=== PATIENT | male | born 2005 | race Caucasian/White ===

== ENCOUNTER 2025-02-14 11:56 | Emergency (ER) | payer OTHER, SELFPAY ==
--- OUTSIDE RECORDS SUMMARY | 2025-02-14 12:01 | XMS_ITS | Clinical Summary ---
Author Organization [facility] Address [address] [place] [address] Care Team Providers Care Sub Master Name Role Phone Dalila Beasley MD Primary Care Provider [phone] Source Comments [facility],non-owned Affiliates and Associated Physician Practices is amultiple site organization consisting of ambulatory clinics and hospital sitesin [place], [place], [place] and [place]. This disclosure is being madepursuant to the Care Everywhere program and may not contain all information available regarding this patient. Last updated 17.[facility] Allergies No known active allergies Medications * Be aware that medications may not be up to date on this document. Alwaysverify current medications with the patient. 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 Gender Identity Not on file Sexual Orientation Not on file Last Filed Vital Signs Vital Sign Reading Time Taken Comments Blood Pressure 98/60 10/06/2014 2:05 PM CDT Pulse 80 10/06/2014 6:07 PM CDT Temperature 37 C (98.6 F) 10/06/2014 4:15 PM CDT Respiratory Rate 20 10/06/2014 6:07 PM CDT Oxygen Saturation 98% 10/06/2014 2:05 PM CDT Inhaled Oxygen Concentration - - Weight 36.2 kg (79 lb 12.9 oz) 10/06/2014 2:05 P M CDT Height - - Body Mass Index - - Plan of Treatment Health Maintenance Due Date Last Done Comments HIV SCREENING 01/13/2020 HPV VACCINE (1 - Male 3-dose series) 01/13/2020 MENINGOCOCCAL (Group B) VACC INE SHARED DECISION-MAKING (1 of 2 - Standard) 2021 HEPATITIS C SCREENING 01/08/2023 DTAP/TDAP/TD VACCINES (1 - Tdap) 01/13/2024 HEPATITIS B VACCINE (1 of 3 - 19+ 3-dose series) 01/13/2024 DEPRESSION SCREENING 03/05/2024 COVID-19 VACCINE (1 - 2024-2 6 season) 2024 INFLUENZA VACCINE (#1) 2024 ZOSTER VACCINE (1 of 2) 2055 HIB VACCINE Aged Out No longer eligi ble based on patient's age to complete this topic MENINGOCOCCAL GROUPS A/C/Y/W VACCINE Aged Out No longer eligible b ased on patient's age to complete this topic PNEUMOCOCCAL VACCINE Aged Out No long er eligible based on patient's age to complete this topic Insurance Dr GALLO LO[address] [place] [address] Care Teams Sub Master Relationship Specialty Start Date End Date Dalila Beasley MD [facility] [address] [place] [address] PCP - General Pediatrics 10/06/14
[2025-02-14 12:07] VITALS: BP 132/79; PULSE 109; RESP 20; TEMP 36.9; O2SAT 99
--- NOTE | 2025-02-14 12:46 | ED_ITS ---
HPI - URI/Sore Throat General Chief Complaint: Upper Respiratory Infection Stated Complaint: throat/cough/chest congestion Time Seen by Provider: 02/14/25 12:40 Source: patient and RN notes reviewed Mode of arrival: ambulatory Limitations: no limitations History of Present Illness HPI Narrative: 20-year-old male patient presents today complaining of a cough, postnasal drip, chills, sore throat, chest wall pain, and dizziness since yesterday. Denies known fever. He has tried vitamin-C and Zicam without much improvement. Currently rates his discomfort 5/10. Reports sick exposures at work. No history of asthma. He is a nonsmoker. Related Data Home Medications ?Medication ?Instructions ?Recorded ?Confirmed ?Last Taken ?Type No Home Medications 02/14/25 02/14/25 U nknown History Allergies Allergy/AdvReac Type Severity Reaction Status Date / Time No Known Allergies Allergy Verified 02/14/25 12:11 PMFSH Comments At time of signature, I have reviewed and agree with nursing past medical, surgical, social and family history unless otherwise noted. Please see nursing chart for further information. There is no relevant family history pertinent to the presenting complaint Exam Narrative: GENERAL: Well-appearing, well-nourished, and in no acute distress. HEAD: Normocephalic, atraumatic. EYES: EOMI. No redness or drainage. Conjunctivae normal. ENT: Mucous membranes pink and moist. Nares clear. No rhinorrhea. TMs normal bilaterally. Throat normal. Uvula midline. NECK: Normal AROM. Supple. No lymphadenopathy. CHEST: No respiratory distress. Clear to auscultation. Sternal borders are mildly tender to palpation. HEART: Regular rate and rhythm. No murmur appreciated. EXTREMITIES: Normal range of motion. No edema. SKIN: Warm, dry, no rash. Capillary refill normal. Normal skin turgor. NEURO: No focal deficits. Alert and oriented x3. Gait steady. PSYCH: Normal affect. No signs of depression or anxiety. Course Course Level of Care: Express Care Visit Vital Signs Vital signs: Vital Signs Temperature 98.4 F 02/14/25 12:07 Pulse Rate 109 H 02/14/25 12:07 Respiratory Rate 20 02/14/25 12:07 Blood Pressure 132/79 02/14/25 12:07 Pulse Oximetry 99 02/14/25 12:07 Temperature 98.4 F 02/14/25 12:07 Pulse Rate 109 H 02/14/25 12:07 Respiratory Rate 20 02/14/25 12:07 Blood Pressure 132/79 02/14/25 12:07 Pulse Oximetry 99 02/14/25 12:07 Reviewed MDM MDM Narrative Medical decision making narrative: 20-year-old male patient presents today complaining of a cough, postnasal drip, chills, sore throat, chest wall pain, and dizziness since yesterday. Denies known fever. He has tried vitamin-C and Zicam without much improvement. Currently rates his discomfort 5/10. Reports sick exposures at work. No history of asthma. He is a nonsmoker. Upon exam, patient's exam is normal except for mild chest tenderness with palpation. COVID negative, influenza negative, rapid strep negative. Strep culture pending. Symptoms likely viral in etiology. Discussed ilno-kgh-[id number] medication use and duration of illness. No prescription medications indicated at this time. Anticipatory guidance given. Vital signs stable. Differential Diagnosis Differential Diagnosis: COVID-19, influenza, strep throat, URI, costochondritis Lab Data Labs: Lab Results 02/14/25 Range/Units 12:47 POC Influenza A Ag Negative (Negative) POC Influenza B Ag Negative (Negative) POC SARS CoV-2 Ag Negative (Negative) POC Grp A Strep Screen Negative (Negative) Critical Care Time Critical Care Time Critical Care Time: No Discharge Plan Discharge Clinical Impression: Viral syndrome Patient Disposition: Home Condition: Stable Instructions: Viral Syndrome (ED) Additional Instructions: Your influenza, COVID-19, and rapid strep swab was negative today at [facility]. You will be notified in a few days if the culture comes back positive for strep, and appropriate antibiotics will be called in for you at that time. Your symptoms are likely due to a viral illness, which is not treated with antibiotics. Viral symptoms can be present for up to 7-10 days. Take Tylenol or ibuprofen for fever or pain. Rest and stay hydrated. Follow up with your PCP in 7-10 days if symptoms are not improving. Go to the ER immediately if you have any difficulty breathing or swallowing. Patient Language: Gibraltarian Prescriptions: No Action No Home Medications Follow-up/Referrals: PHYSICIAN,RELAY MOTORMAN [Primary Care Provider, Internal Medicine] Stand Alone Forms: Work/School Release IP Time of Disposition: 13:04
[2025-02-14 13:05] LABS: EDCOVIDSCREEN Negative (Negative); EDINFLUASCREEN Negative (Negative); EDINFLUBSCREEN Negative (Negative); EDSTREPNEGPOS1 Negative (Negative)
== END 2025-02-14 13:09 | disposition home or self-care (01) ==
PROVIDERS: Emergency Provider Nurse Practitioner
DX: B34.9 Viral infection, unspecified (principal); Z20.822 Contact with and (suspected) exposure to COVID-19
CPT/HCPCS: 87081; 87426; 87804; 87880; 99203; G0463